=== PATIENT | male | born 1955 | race Caucasian/White ===

== ENCOUNTER 2022-01-30 05:46 | Inpatient (IN) | payer OTHER ==
[2022-01-30 06:21] LABS: #Eosinphils 0.3 10x3/uL (0.0-0.5); #Monocytes 0.7 10x3/uL (0.0-1.1); #Neutrophils 7.3 10x3/uL (1.5-8.4); %Basophils 0.3 % (0.0-2.0); %Eosinophils 2.8 % (0.0-6.0); %Lymphocytes 17.7 % (18.0-47.0); %Monocytes 7.1 % (0.0-10.0); %Neutrophils 71.9 % (40.0-75.0); Hemoglobin 14.6 g/dL (13.5-17.5); Mean Corpuscular HGB CONC 31.7 g/dL (32.0-36.0); Mean Corpuscular Hemoglobin 31.3 pg (27.0-33.0); Mean Corpuscular Volume 98.7 fl (81.2-95.1); Mean Platelet Volume 10.6 fl (7.4-10.4); Platelet Count 181 10x3/uL (150-450); RBC Distribution Width 13.2 % (11.5-14.5); Red Blood Cell (RBC) Count 4.67 10x6/uL (4.32-5.72); White Blood Cell (WBC) Count 10.1 10x3/uL (3.5-10.5)
[2022-01-30 06:34] LABS: Acetaminophen Less than 10.0 mcg/mL (10.0-30.0); Alcohol Less than 10 mg/dL (Less than 10); Salicylate Less than 8.0 mg/dL (15.0-30.0)
[2022-01-30 06:36] LABS: ALT (SGPT) 17 U/L (8-55); AST (SGOT) 17 U/L (5-34); Albumin 4.6 g/dL (3.4-4.8); Alkaline Phosphatase 44 U/L (40-110); Anion Gap 13 mmol/L (10-20); BUN (Urea Nitrogen) 16 mg/dL (8.4-25.7); Bilirubin, Total 0.4 mg/dL (0.2-1.2); Calc. Creatinine Clearance 0 mL/min (70-130); Calcium 9.9 mg/dL (7.8-10.44); Carbon Dioxide 21 mmol/L (23-31); Chloride 111 mmol/L (98-107); Estimated GFR 84; Globulin 2.9 g/dL (2.4-3.5); Glucose 136 mg/dL (80-115); Potassium 4.2 mmol/L (3.5-5.1); Protein, Total 7.5 g/dL (5.8-8.1); Sodium 141 mmol/L (136-145)
[2022-01-30 07:01] LABS: Magnesium 2.1 mg/dL (1.6-2.6)
[2022-01-30] MEDS ORDERED: levETIRAcetam 500 MG/5 ML VIAL ONE (07:20)
[2022-01-30] MEDS ORDERED: levETIRAcetam in NS 100 ML ONE (07:21)
[2022-01-30] MEDS ORDERED: Amiodarone In Dextrose 200 ML ONE (07:21)
[2022-01-30 07:56] LABS: SARS-CoV-2 NAA Rapid Test Not Detected (NotDetected)
[2022-01-30] MEDS ORDERED: Guaifenesin DM 100-10/5 ML UDCUP PO PRN (07:58)
[2022-01-30] MEDS ORDERED: Ondansetron PF 4 MG/2 ML Vial IVP PRN (07:58)
[2022-01-30] MEDS ORDERED: Senokot S 8.6-50 MG TAB PO PRN (07:58)
[2022-01-30 08:02] LABS: Amphetamine Not Detected (NotDetected); Barbiturates Screen Not Detected (NotDetected); Benzodiazepine Screen Not Detected (NotDetected); Cocaine Metabolite Screen Not Detected (NotDetected); Methadone Not Detected (NotDetected); Methamphetamine Not Detected (NotDetected); Opiate Screen Not Detected (NotDetected); Oxycodone Screen Not Detected (NotDetected); Phencyclidine (PCP) Not Detected (NotDetected); THC/Cannabinoid Screen Not Detected (NotDetected); Tricyclic Screen Not Detected (NotDetected)
[2022-01-30 08:59] LABS: Magnesium 3.2 mg/dL (1.6-2.6)
[2022-01-30 09:13] LABS: Lactic Acid 1.9 mmol/L (0.5-2.2)
[2022-01-30] MEDS: Famotidine/PF 20 mg/2ml Vial SLOW IVP SCH ×2 (09:52→20:52)
[2022-01-30] MEDS: Enoxaparin Sodium 40 MG/0.4 ML SYRINGE SC SCH (09:52)
[2022-01-30] MEDS: Sodium Chloride 0.9% 1,000 ML IV SCH ×2 (09:52→20:53)
[2022-01-30 10:17] VITALS: BMI 29.4
[2022-01-30] MEDS: Lorazepam 2 MG/ML VIAL SLOW IVP PRN ×3 (10:32→22:29)
[2022-01-30] MEDS ORDERED: Magnevist 469MG/ML 20 ML VIAL ONE (15:33)
[2022-01-30] MEDS: Lithium Carbonate 150 MG CAP PO SCH (19:56)
[2022-01-30] MEDS: OLANZapine 5 MG TAB PO SCH (19:56)
[2022-01-30] MEDS: Topiramate 100 MG TAB PO SCH (19:56)
[2022-01-30] MEDS: levETIRAcetam in NS 1,500 MG in Premix Bag 1 BAG IVPB SCH (20:52)
[2022-01-30] MEDS ORDERED: levETIRAcetam in NS 1,000 MG in Premix Bag 1 BAG IVPB SCH (21:00)
[2022-01-30] MEDS ORDERED: levETIRAcetam 500 MG/5 ML VIAL SLOW IVP SCH ×2 (21:00)
[2022-01-30] MEDS ORDERED: Benztropine 1 MG TAB PO SCH (21:00)
[2022-01-30] MEDS ORDERED: Venlafaxine HCl XR 75 MG CAP PO SCH (21:00)
[2022-01-31] MEDS: Lorazepam 2 MG/ML VIAL SLOW IVP PRN ×3 (01:15→14:30)
[2022-01-31 02:11] LABS: #Eosinphils 0.3 10x3/uL (0.0-0.5); #Monocytes 0.8 10x3/uL (0.0-1.1); #Neutrophils 7.3 10x3/uL (1.5-8.4); %Basophils 0.3 % (0.0-2.0); %Eosinophils 2.7 % (0.0-6.0); %Lymphocytes 21.2 % (18.0-47.0); %Monocytes 7.3 % (0.0-10.0); %Neutrophils 68.2 % (40.0-75.0); Hemoglobin 14.4 g/dL (13.5-17.5); Mean Corpuscular HGB CONC 31.9 g/dL (32.0-36.0); Mean Corpuscular Hemoglobin 31.2 pg (27.0-33.0); Mean Corpuscular Volume 97.8 fl (81.2-95.1); Mean Platelet Volume 10.4 fl (7.4-10.4); Platelet Count 183 10x3/uL (150-450); Red Blood Cell (RBC) Count 4.61 10x6/uL (4.32-5.72); White Blood Cell (WBC) Count 10.6 10x3/uL (3.5-10.5)
[2022-01-31 02:15] LABS: Anion Gap 13 mmol/L (10-20); BUN (Urea Nitrogen) 14 mg/dL (8.4-25.7); Calc. Creatinine Clearance 119 mL/min (70-130); Calcium 9.3 mg/dL (7.8-10.44); Carbon Dioxide 20 mmol/L (23-31); Chloride 116 mmol/L (98-107); Estimated GFR 96; Glucose 108 mg/dL (80-115); Magnesium 2.4 mg/dL (1.6-2.6); Potassium 4.1 mmol/L (3.5-5.1); Sodium 145 mmol/L (136-145)
[2022-01-31] MEDS: Enoxaparin Sodium 40 MG/0.4 ML SYRINGE SC SCH (09:10)
[2022-01-31] MEDS: levETIRAcetam in NS 1,500 MG in Premix Bag 1 BAG IVPB SCH ×2 (09:11→19:59)
[2022-01-31] MEDS: Famotidine/PF 20 mg/2ml Vial SLOW IVP SCH ×2 (09:11→20:33)
[2022-01-31 09:36] LABS: Troponin I Less than 0.010 ng/mL (< 0.028)
[2022-01-31] MEDS: Lithium Carbonate 150 MG CAP PO SCH ×2 (09:43→20:00)
[2022-01-31] MEDS: Lisinopril 20 MG TAB PO SCH (09:43)
[2022-01-31] MEDS: Topiramate 100 MG TAB PO SCH ×2 (09:43→20:00)
[2022-01-31] MEDS: Sodium Chloride 0.9% 1,000 ML IV SCH (13:34)
[2022-01-31 13:44] LABS: Troponin I Less than 0.010 ng/mL (< 0.028)
[2022-01-31] MEDS ORDERED: Midazolam HCl 2 mg/2 ml Vial SLOW IVP SCH (16:00)
[2022-01-31 17:46] LABS: Troponin I Less than 0.010 ng/mL (< 0.028)
[2022-01-31] MEDS: OLANZapine 5 MG TAB PO SCH (20:00)
[2022-01-31] MEDS: Midazolam HCl 2 mg/2 ml Vial SLOW IVP SCH (20:33)
[2022-01-31 21:30] LABS: Troponin I Less than 0.010 ng/mL (< 0.028)
[2022-01-31] MEDS ORDERED: Ziprasidone 20 MG VIAL IM SCH (23:30)
[2022-01-31] MEDS ORDERED: Sterile Water 10 ML ONE (23:33)
[2022-02-01] MEDS: Sodium Chloride 0.9% 1,000 ML IV SCH (06:53)
[2022-02-01] MEDS: levETIRAcetam in NS 1,500 MG in Premix Bag 1 BAG IVPB SCH (07:48)
[2022-02-01] MEDS: Lisinopril 20 MG TAB PO SCH (07:49)
[2022-02-01] MEDS: Famotidine/PF 20 mg/2ml Vial SLOW IVP SCH ×2 (07:49→21:37)
[2022-02-01] MEDS: Topiramate 100 MG TAB PO SCH ×2 (07:49→21:37)
[2022-02-01] MEDS: Enoxaparin Sodium 40 MG/0.4 ML SYRINGE SC SCH (07:49)
[2022-02-01] MEDS: Lithium Carbonate 150 MG CAP PO SCH ×2 (07:49→21:37)
[2022-02-01 10:05] LABS: Anion Gap 15 mmol/L (10-20); BUN (Urea Nitrogen) 14 mg/dL (8.4-25.7); Calc. Creatinine Clearance 133 mL/min (70-130); Calcium 9.2 mg/dL (7.8-10.44); Carbon Dioxide 13 mmol/L (23-31); Chloride 120 mmol/L (98-107); Estimated GFR 98; Glucose 99 mg/dL (80-115); Magnesium 1.9 mg/dL (1.6-2.6); Potassium 4.4 mmol/L (3.5-5.1); Sodium 144 mmol/L (136-145)
[2022-02-01] MEDS: Acetaminophen 325 MG TAB PO PRN ×2 (10:43→21:37)
[2022-02-01] MEDS ORDERED: Dextrose 5% in Water 1,000 ML IV PRN (11:06)
[2022-02-01] MEDS ORDERED: HumaLOG 300 UNITS/3 ML VIAL SC PRN (11:06)
[2022-02-01] MEDS ORDERED: Dextrose 50% Abboject 50 ML SYRINGE SLOW IVP PRN (11:06)
[2022-02-01] MEDS: HYDROcodone/Acetaminophen 5/325 mg Tablet PO PRN (11:19)
[2022-02-01] MEDS ORDERED: Lidocaine 5% Patch TD SCH (12:00)
[2022-02-01] MEDS ORDERED: Magnesium Oxide 400 MG TAB PO SCH (12:00)
[2022-02-01] MEDS: Midazolam HCl 2 mg/2 ml Vial SLOW IVP SCH (15:22)
[2022-02-01] MEDS ORDERED: Terazosin HCl 5 MG CAP PO SCH (21:00)
[2022-02-01] MEDS ORDERED: Atorvastatin Calcium 10 MG TAB PO SCH (21:00)
[2022-02-01] MEDS: OLANZapine 5 MG TAB PO SCH (21:37)
[2022-02-01] MEDS: levETIRAcetam 500 MG TAB PO SCH (21:37)
[2022-02-01] MEDS ORDERED: Transdermal Patch Removal TOP SCH (23:59)
[2022-02-02 05:23] LABS: Anion Gap 10 mmol/L (10-20); BUN (Urea Nitrogen) 14 mg/dL (8.4-25.7); Calc. Creatinine Clearance 125 mL/min (70-130); Carbon Dioxide 19 mmol/L (23-31); Chloride 115 mmol/L (98-107); Potassium 3.8 mmol/L (3.5-5.1); Sodium 140 mmol/L (136-145)
[2022-02-02 05:24] LABS: Calcium 9.3 mg/dL (7.8-10.44); Estimated GFR 97; Glucose 110 mg/dL (80-115); Magnesium 1.9 mg/dL (1.6-2.6)
[2022-02-02] MEDS: HYDROcodone/Acetaminophen 5/325 mg Tablet PO PRN (08:30)
[2022-02-02] MEDS: levETIRAcetam 500 MG TAB PO SCH (08:30)
[2022-02-02] MEDS: Famotidine/PF 20 mg/2ml Vial SLOW IVP SCH (08:30)
[2022-02-02] MEDS: Lisinopril 20 MG TAB PO SCH (08:31)
[2022-02-02] MEDS: Lithium Carbonate 150 MG CAP PO SCH (08:31)
[2022-02-02] MEDS ORDERED: Aspirin Chewable 81 MG TAB PO SCH (09:00)
[2022-02-02] MEDS ORDERED: Potassium Chloride 20 MEQ TAB PO SCH (09:00)
[2022-02-02] MEDS ORDERED: Magnesium Oxide 400 MG TAB PO SCH (09:00)
[2022-02-02] MEDS ORDERED: Lidocaine 5% Patch TD SCH (09:00)
[2022-02-02] MEDS: Topiramate 100 MG TAB PO SCH (09:57)
[2022-02-02] MEDS ORDERED: Sodium Bicarbonate Tab 325 MG TAB PO SCH (11:45)
[2022-02-02 12:34] VITALS: BP 115/65; TEMP 97.6
[2022-02-02] MEDS ORDERED: Transdermal Patch Removal TOP SCH (21:00)
== END 2022-02-02 16:35 | DRG 100 ==
LOC: CSHERS 05:46 → EEVIPCON 07:50 → CSHICU 07:50 → UNDODISIN 01-31 20:25 → CSHTELE 02-01 15:18
PROVIDERS: ADMIT Student in an Organized Health Care Education/Training Program; ATTEND Family Medicine
PROC: 4A10X4Z Monitoring of Central Nervous Electrical Activity, External Approach (ICD-10-PCS; principal; 2022-01-30)
PROC: 5A09357 Assistance with Respiratory Ventilation, Less than 24 Consecutive Hours, Continuous Positive Airway Pressure (ICD-10-PCS; 2022-01-31)
DX: G40.901 Epilepsy, unspecified, not intractable, with status epilepticus (principal); G93.41 Metabolic encephalopathy; I47.2 Ventricular tachycardia; E78.5 Hyperlipidemia, unspecified; G20 Parkinson's disease; I10 Essential (primary) hypertension; G47.33 Obstructive sleep apnea (adult) (pediatric); Z20.822 Contact with and (suspected) exposure to COVID-19; K74.60 Unspecified cirrhosis of liver; B19.20 Unspecified viral hepatitis C without hepatic coma; T42.6X5A Adverse effect of other antiepileptic and sedative-hypnotic drugs, initial encounter; E11.9 Type 2 diabetes mellitus without complications; G40.909 Epilepsy, unspecified, not intractable, without status epilepticus; F25.9 Schizoaffective disorder, unspecified; Z88.5 Allergy status to narcotic agent; Z88.8 Allergy status to other drugs, medicaments and biological substances; Z79.82 Long term (current) use of aspirin; Z79.899 Other long term (current) drug therapy; Z79.84 Long term (current) use of oral hypoglycemic drugs
CPT/HCPCS: 36415; 36416; 70553; 71045; 80048; 80053; 80177; 80178; 80306; 80307; 83605; 83735; 84443; 84484; 85025; 93005; 93010; 93306; 94660; 94760; 95816; 95819; 95957; 96374; 96375; 96376; A9579; J0282; J1650; J1953; J2060; J2250; J3486; J7050; S0028; U0002